=== PATIENT | male | born 1970 | race Caucasian/White ===

== ENCOUNTER → 2021-09-06 | Outpatient (CLI) | payer OTHER ==
--- NOTE | 2021-09-06 18:18 | US ---
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 Technique: Targeted ultrasound examination along the medial upper left thigh at the patient's palpabl e site. FINDINGS: Associate Professor Of Sociology notes: Mass in left upper thigh appearing to measuring 10.5 x 5.4 x 10.7cm. This appears to localize to the subcutaneous adipose layer and is isoechoic to the surrounding fat. M ass effect onto the underlying musculature. A stitched Logic view shows that this is located approximately 11 cm medial and posterior to the femo ral neurovascular bundle. IMPRESSION: Possible large 10.7 cm subcutaneous lipomatous tumor versus other mesenchymal tumor at the patient's medial left upper thigh palpable site. This is medial, posterior, and separate from the femoral neuro vascular bundle. Recommend further CT evaluation. If growth is noted, atypical lipomatous tumor or li posarcoma are in the differential.
== END | disposition home or self-care (01) ==
LOC: RADUSWWP 14:03
PROVIDERS: ATTEND Surgery Plastic and Reconstructive Surgery
DX: D21.5 Benign neoplasm of connective and other soft tissue of pelvis (principal); I11.9 Hypertensive heart disease without heart failure
CPT/HCPCS: 93005

== ENCOUNTER 2021-09-30 07:27 | Day surgery (SDC) | payer OTHER ==
[2021-09-27 13:57] VITALS: BMI 38.0
[~2021-09-30 07:27] MED LIST: DEXAMETHASONE SOD PHOSPHATE 4 MG/ML 1 ML VIAL IV ONE; HEPARIN SODIUM,PORCINE/PF 5,000 UNIT/0.5 ML SYRINGE SQ PRN; HYDROmorphone 0.5 MG/0.5 ML SYRINGE IVP PRN; LACTATED RINGERS 1,000 ML IV SCH; MIDAZOLAM 2 MG/2 ML VIAL IV PRN; ONDANSETRON 4 MG/2 ML VIAL IVP ONE; Pre Op ABX Message 1 EACH MISC MISCELLANE ONE; SCOPOLAMINE 1.5MG/72HR PATCH TRANSDERM ONE; ceFAZolin 3 GM in SODIUM CHLORIDE 0.9% 100 ML IVPB PRN
[2021-09-30] MEDS ORDERED: GABAPENTIN 300 MG CAP PO PRN (07:58)
[2021-09-30] MEDS ORDERED: MELOXICAM 7.5 MG TAB PO PRN (07:58)
[2021-09-30] MEDS ORDERED: ACETAMINOPHEN TAB 500 MG TAB PO PRN (07:58)
[2021-09-30] MEDS ORDERED: TAMSULOSIN 0.4 MG CAP.ER.24H PO PRN (07:58)
--- NOTE | 2021-09-30 08:00 | P.GSHP ---
History of Present Illness H&P Date: 09/30/21 CHIEF COMPLAINT: Left posterior thigh mass HISTORY OF PRESENT ILLNESS: The patient is a 51 year-old female with history of cystic mass along the left posterior thigh. He presents for excision. PAST MEDICAL HISTORY: Please see list. PAST SURGICAL HISTORY: Please see list. MEDICATIONS: Please see list. ALLERGIES: Please see list. SOCIAL HISTORY: No illicit drug use FAMILY HISTORY: No reports of Crohn disease or ulcerative colitis. REVIEW OF ORGAN SYSTEMS: CONSTITUTIONAL: No reports of fevers or chills. GI: Denies any blood in stools or constipation. PHYSICAL EXAM: VITAL SIGNS: Stable Musculoskeletal: Approximately 15 cm mass along the left groin. GENERAL: Well developed and in no acute distress. Pleasant. HEENT: No sclera icterus. Extraocular movements grossly intact. Moist buccal mucosa. Head is atraumatic, normocephalic. Hears conversational speech. No nasal drainage. NECK: Supple without lymphadenopathy. No JV distention. CHEST: Non-labored respirations and equal bilateral excursions. CARDIOVASCULAR: Regular rate and rhythm. Palpable 2+ radial pulses. ABDOMEN: Soft. Non-tender. Nondistended. NEUROLOGIC: No focal or lateralizing signs. PSYCH: Appropriate affect. Alert and oriented to person, place and time. ASSESSMENT: 1. Left thigh posterior mass PLAN: 1. Will proceed of excision of left posterior thigh mass. Benefits and risks of infection due to location of lesion also reviewed 2. DVT prophylaxis. 3. Antibiotic prophylaxis. 4. Time of recovery, at least 2 weeks 5. General anesthetic reviewed. Past Medical History Past Medical History: Osteoarthritis (OA) History of Any Multi-Drug Resistant Organisms: None Reported Past Surgical History: Hernia Repair Past Anesthesia/Blood Transfusion Reactions: No Reported Reaction Past Psychological History: No Psychological Hx Reported Smoking Status: Former smoker, Light tobacco smoker Past Alcohol Use History: Occasional Additional Past Alcohol Use History / Comment(s): Quit smoking 4 yrs ago, was a social smoker, smoked 20+ yrs. Past Drug Use History: None Reported - Past Family History Mother Family Medical History: No Reported History Father Additional Family Medical History / Comment(s): "Triple bypass and blood clots, 2 yrs ago". Medications and Allergies Home Medications Medication Instructions Recorded Confirmed Type No Known Home Medications 09/27/21 09/27/21 History Allergies Allergy/AdvReac Type Severity Reaction Status Date / Time No Known Allergies Allergy Verified 09/27/21 13:58
[2021-09-30 08:28] LABS: Basophils # (A) 0.1 k/uL (0-0.2); Basophils % (A) 1 %; Eosinophils # (A) 0.2 k/uL (0-0.7); Eosinophils % (A) 3 %; HCT 43.3 % (39.0-53.0); HGB 14.5 gm/dL (13.0-17.5); Lymphocytes # (A) 1.8 k/uL (1.0-4.8); Lymphocytes % (A) 24 %; MCH 29.4 pg (25.0-35.0); MCHC 33.4 g/dL (31.0-37.0); Mean Platelet Volume 7.6; Monocytes # (A) 0.4 k/uL (0-1.0); Monocytes % (A) 5 %; Neutrophils # (A) 5.1 k/uL (1.3-7.7); Neutrophils % (A) 66 %; Platelet Count 346 k/uL (150-450); RBC 4.92 m/uL (4.30-5.90); RDW 12.9 % (11.5-15.5); WBC 7.7 k/uL (3.8-10.6)
[2021-09-30 08:42] LABS: ALT 30 U/L (4-49); AST 24 U/L (17-59); African American GFR (CKD) >90 (>60 ml/min/1.73 sqM); Albumin 4.1 g/dL (3.5-5.0); Alkaline Phosphatase 71 U/L (38-126); Anion Gap 7 mmol/L; Blood Urea Nitrogen 15 mg/dL (9-20); Calcium 8.9 mg/dL (8.4-10.2); Carbon Dioxide 24 mmol/L (22-30); Chloride 106 mmol/L (98-107); Glucose 110 mg/dL (74-99); Non-African American GFR(CKD) >90 (>60 ml/min/1.73 sqM); Potassium 4.3 mmol/L (3.5-5.1); Sodium 137 mmol/L (137-145); Total Bilirubin 0.6 mg/dL (0.2-1.3); Total Protein 7.5 g/dL (6.3-8.2)
[2021-09-30] MEDS ORDERED: GLYCOPYRROLATE 0.2 MG/ML 2 ML VIAL ONE (08:58)
[2021-09-30] MEDS ORDERED: fentaNYL (PF) 50 MCG/ML 2 ML AMP ONE (08:58)
[2021-09-30] MEDS ORDERED: PROPOFOL 10 MG/ML 20 ML VIAL IV ONE (08:58)
[2021-09-30] MEDS ORDERED: LIDOCAINE 1% INJ 10MG/ML (20 ML MDV) ONE (08:58)
[2021-09-30] MEDS ORDERED: NEOSTIGMINE 1 MG/ML 10 ML VIAL ONE (08:58)
[2021-09-30] MEDS ORDERED: ROCURONIUM 10 MG/ML (5 ML VIAL) IV ONE (08:58)
[2021-09-30] MEDS ORDERED: SUCCINYLCHOLINE CHLORIDE VIAL 200 MG/10 ML VIAL IV ONE (08:58)
[2021-09-30] MEDS ORDERED: MIDAZOLAM 2 MG/2 ML VIAL ONE (08:58)
[2021-09-30] MEDS ORDERED: BUPIVACAIN-EPI 0.25%-1:200,000 30 ML VIAL SQ ONE (09:05)
--- NOTE | 2021-09-30 10:29 | P.OP ---
Date of Procedure: 09/30/21 Description of Procedure: SURGEON: MYRA MCKAY MD LEARNING MANAGER: NONE. PREOPERATIVE DIAGNOSES: 1. Left upper inner posterior thigh subcutaneous tumor, 15 cm 2. Morbid obesity due to excess calories, BMI 38.2 3. History of tobacco use POSTOPERATIVE DIAGNOSES: 1. Left upper inner posterior thigh subcutaneous tumor, 15 cm 2. Morbid obesity due to excess calories, BMI 38.2 3. History of tobacco use OPERATION: 1. Excision of left upper inner posterior thigh subcutaneous tumor, 15 cm. 2. Intermediate closure of left posterior thigh incision, 15 cm. ANESTHESIA: MAC with local ESTIMATED BLOOD LOSS: 5 mL. SPECIMENS REMOVED: 1. Left upper inner posterior subcutaneous tumor COMPLICATIONS: None. FINDINGS: 1. Left upper inner posterior excision 15 cm subcutaneous tumor. INDICATIONS: The patient is a 51year-old male who presents with left upper inner posterior subcutaneous tumor. Surgical options, including excision was discussed. Benefits and risks were described. Informed consent was obtained. DESCRIPTION OF PROCEDURE: Patient was brought into the operating room, laid in left lateral decubitus position. After adequate IV sedation, the left lower leg was prepped and draped in standard sterile fashion using ChloraPrep. A timeout protocol was confirmed with the surgical team regarding patient's name including procedures to be performed. Preoperative medications was administered. Next, a local field block was administered. The left upper inner posterior mass was measured using a ruler with borders marked with indelible marker. A transverse incision along the skin tension lines of 15 cm in size was made into the dermis followed by circumferential dissection using electro-Bovie cautery into the subcutaneous tissue. The multilobulated tumor was expressed from the wound and dissected free from surrounding tissues. Hemostasis was checked with electrocautery cautery. The skin was cleansed with dilute hydrogen peroxide. The wound was closed in multiple layers including 0 Vicryl for the deep subcutaneous tissue in interrupted fashion. The skin was closed using 3-0 Monocryl running subcuticular fashion. Exofin tape including liquid glue was used as the final third layer. Optifoam dressing was placed. At the end of the procedure, needle, sponge, and instrument count had been verified correct by the surgical specialist. The patient was taken to the postanesthesia care unit in stable condition. Plan - Discharge Summary Discharge Rx Participant: No New Discharge Prescriptions: New Ibuprofen [Motrin] 600 mg PO Q8HR PRN #30 tab PRN Reason: Pain Acetaminophen Tab [Tylenol Tab] 1,000 mg PO Q6HR PRN #30 tablet PRN Reason: Pain Discharge Medication List Acetaminophen Tab [Tylenol Tab] 1,000 mg PO Q6HR PRN #30 tablet 09/30/21 [Rx] Ibuprofen [Motrin] 600 mg PO Q8HR PRN #30 tab 09/30/21 [Rx] Follow up Appointment(s)/Referral(s): Myra Mckay MD [STAFF PHYSICIAN] - 10/04/21 Patient Instructions/Handouts: Excision of Skin Lesion (GEN) Activity/Diet/Wound Care/Special Instructions: DO NOT REMOVE DRESSING. May shower. No bath tub soaks for two weeks until October 14 Diet as tolerated. Use Tylenol and ibuprofen or Aleve scheduled for the next 24-48 hours for best pain relief. Use ice along incisions for today to prevent swelling. Discharge Disposition: HOME SELF-CARE
[2021-09-30 10:32] VITALS: TEMP 97
[2021-09-30] MEDS ORDERED: LACTATED RINGERS 1,000 ML IV ONE (10:37)
[2021-09-30 10:42] VITALS: RESP 14
[2021-09-30 11:14] VITALS: BP 120/87; PULSE 79
== END 2021-09-30 11:48 | disposition home or self-care (01) ==
LOC: OR 07:27
PROVIDERS: ATTEND Surgery Plastic and Reconstructive Surgery
DX: D17.24 Benign lipomatous neoplasm of skin and subcutaneous tissue of left leg (principal); E66.01 Morbid (severe) obesity due to excess calories; Z68.38 Body mass index [BMI] 38.0-38.9, adult; M19.90 Unspecified osteoarthritis, unspecified site; Z98.890 Other specified postprocedural states; Z87.891 Personal history of nicotine dependence; Z86.79 Personal history of other diseases of the circulatory system
CPT/HCPCS: 88304; 80053; 85025; 27337; J2250; J0330; J1100; J2710; J0690; J2405; J2001; J3010; J2704; J1644

== ENCOUNTER 2021-12-22 07:19 | Day surgery (SDC) | payer OTHER ==
[2021-12-20 12:58] VITALS: BMI 38.0
[~2021-12-22 07:19] MED LIST changes: -DEXAMETHASONE SOD PHOSPHATE 4 MG/ML 1 ML VIAL IV ONE; -HEPARIN SODIUM,PORCINE/PF 5,000 UNIT/0.5 ML SYRINGE SQ PRN; -HYDROmorphone 0.5 MG/0.5 ML SYRINGE IVP PRN; -MIDAZOLAM 2 MG/2 ML VIAL IV PRN; -ONDANSETRON 4 MG/2 ML VIAL IVP ONE; -Pre Op ABX Message 1 EACH MISC MISCELLANE ONE; -SCOPOLAMINE 1.5MG/72HR PATCH TRANSDERM ONE; -ceFAZolin 3 GM in SODIUM CHLORIDE 0.9% 100 ML IVPB PRN
--- NOTE | 2021-12-22 07:45 | P.GSHP ---
History of Present Illness H&P Date: 12/22/21 CHIEF COMPLAINT: Colon screen HISTORY OF PRESENT ILLNESS: The patient is a 51-year-old male who presents for colon screen. Lower endoscopy was offered for further evaluation and management. PAST MEDICAL HISTORY: Please see list. PAST SURGICAL HISTORY: Please see list. MEDICATIONS: Please see list. ALLERGIES: Please see list. SOCIAL HISTORY: No illicit drug use FAMILY HISTORY: No reports of Crohn disease or ulcerative colitis. REVIEW OF ORGAN SYSTEMS: CONSTITUTIONAL: No reports of fevers or chills. PHYSICAL EXAM: VITAL SIGNS: Stable GENERAL: Well-developed pleasant in no acute distress. HEENT: No scleral icterus. Extraocular movements grossly intact. Moist buccal mucosa. NECK: Supple without lymphadenopathy. CHEST: Unlabored respirations. Equal bilateral excursions. CARDIOVASCULAR: Regular rate and rhythm. Distal 2+ pulses. ABDOMEN: Soft, nontender, nondistended. MUSCULOSKELETAL: No clubbing, cyanosis, or edema. ASSESSMENT: 1. Colon screen. PLAN: 1. Recommend proceeding with a lower endoscopy Past Medical History Past Medical History: Osteoarthritis (OA) History of Any Multi-Drug Resistant Organisms: None Reported Past Surgical History: Hernia Repair Additional Past Surgical History / Comment(s): LT THIGH MASS 09/30/21 Past Anesthesia/Blood Transfusion Reactions: No Reported Reaction Smoking Status: Former smoker - Past Family History Mother Family Medical History: No Reported History Father Additional Family Medical History / Comment(s): "Triple bypass and blood clots, 2 yrs ago". Medications and Allergies Home Medications Medication Instructions Recorded Confirmed Type Cholecalciferol [Vitamin D3 (125 125 mcg PO DAILY 12/20/21 12/20/21 History Mcg = 5000 Iu)] Allergies Allergy/AdvReac Type Severity Reaction Status Date / Time No Known Allergies Allergy Verified 12/20/21 12:49
[2021-12-22 07:56] VITALS: TEMP 96.9
--- NOTE | 2021-12-22 09:09 | P.PCN ---
Date of Procedure: 12/22/21 Description of Procedure: PREOPERATIVE DIAGNOSIS: Colonoscopy screening POSTOPERATIVE DIAGNOSIS: Colon polyp ileocecal valve Colon polyp descending colon Internal hemorrhoids, grade 2 OPERATION: Colonoscopy to the ileocecal valve and appendiceal orifice, cecum Colonoscopy with cold forceps biopsy SURGEON: Myra Mckay MD. ANESTHESIA: MAC. INDICATIONS: The patient is an 51-year-old male who presents for colonoscopy screening. Benefits and risks were described and informed consent was obtained. DESCRIPTION OF PROCEDURE: The patient had undergone Sutab prep. The patient had been brought into the operating room and laid in the left lateral decubitus position. After adequate intravenous sedation, the rectum was examined with 2% lidocaine jelly. The prostate was unremarkable. External hemorrhoids were encountered. The rectal tone was within normal limits. No lesions were palpated in the rectal vault. An Olympus colonoscope was advanced until the cecum, ileocecal valve and appendiceal orifice were clearly viewed. The prep was good. No sigmoid diverticulosis was encountered. Colonic polyps were found and removed. No evidence of focal colitis was found. Retroflexion of the scope demonstrated grade 2 internal hemorrhoids without active bleeding or inflammation. The colon was desufflated. The patient had tolerated the procedure well. Withdrawal time was over 6 minutes. FINDINGS: Aronchick preparation quality scale 2 (1-5) Internal hemorrhoids, grade 2 External hemorrhoids, grade 2 No arteriovenous malformations. No sigmoid diverticulosis Removal of 2 polyps: - Cold forceps biopsy at ileocecal valve, 3 mm polyp. - Cold forceps biopsy at 50 cm from the anal verge, 4 mm polyp, descending colon No focal colitis. RECOMMENDATIONS: Repeat colonoscopy in 2026 Plan - Discharge Summary Discharge Rx Participant: No New Discharge Prescriptions: Continue Cholecalciferol [Vitamin D3 (125 Mcg = 5000 Iu)] 125 mcg PO DAILY Discharge Medication List Cholecalciferol [Vitamin D3 (125 Mcg = 5000 Iu)] 125 mcg PO DAILY 12/20/21 [History] Follow up Appointment(s)/Referral(s): Myra Mckay MD [STAFF PHYSICIAN] - As Needed Patient Instructions/Handouts: Colorectal Polyps (GEN) Activity/Diet/Wound Care/Special Instructions: Repeat colonoscopy in years2026 Discharge Disposition: HOME SELF-CARE
[2021-12-22 09:27] VITALS: BP 107/75; PULSE 75; RESP 18
== END 2021-12-22 09:40 | disposition home or self-care (01) ==
LOC: ORWHC2ENDO 07:19
PROVIDERS: ATTEND Surgery Plastic and Reconstructive Surgery
DX: Z12.11 Encounter for screening for malignant neoplasm of colon (principal); K63.5 Polyp of colon; K64.1 Second degree hemorrhoids; K64.4 Residual hemorrhoidal skin tags; M19.90 Unspecified osteoarthritis, unspecified site; Z98.890 Other specified postprocedural states; Z87.891 Personal history of nicotine dependence; Z82.49 Family history of ischemic heart disease and other diseases of the circulatory system
CPT/HCPCS: 45380; 88305